=== PATIENT | female | born 1985 | race Caucasian/White ===

== ENCOUNTER 2020-04-29 22:33 | Inpatient (IN) | payer SELFPAY ==
--- NOTE | 2020-04-29 22:37 | ED_ITS ---
Documented by User: RUSSELL Euceda 04/29/20 23:24 HPI - Psych General: Chief Complaint: Psychiatric Symptoms Stated Complaint: SI Time Seen by Provider: 04/29/20 22:36 Source: patient Mode of arrival: ambulatory Limitations: no limitations History of Present Illness: HPI Narrative: Patient was brought in by EMS for concerns of suicidal ideation. Patient was very belligerent and acting out with staff. At one time patient walked out of the building to smoke a cigarette but then came back because she did not have no cigarettes. Patient states that she wants to put a bullet in her head. Dr. Owens evaluated patient patient and will 96 patient to protect herself.. Associated symptoms: Reports suicidal ideation Review of Systems General: Reports: 10 or more systems reviewed and unremarkable except in HPI and below Psych: Reports: suicidal ideation PFS ED PFSH: Social History Smoking and tobacco status: current every day smoker Physical Exam Const: COMMON NORMALS: no acute distress and patient oriented x3 GENERAL APPEARANCE: not cooperative HENMT: COMMON NORMALS: normocephalic and Normal external nose present HEAD & SCALP: normal to inspection and normocephalic NOSE: Normal external nose present MOUTH: Normal oral and palatal mucosa present Eye: GENERAL EYE: appearance normal, both eyes and all related structures Neck/C-Spine: COMMON NORMALS: full ROM Lymph: LYMPHATIC: no lymphadenopathy noted Chest: COMMONS NORMALS: normal inspection of the chest Resp: COMMON NORMALS: normal respiratory effort EFFORT & INSPECTION: Yes able to speak in complete sentences Cardio: COMMON NORMALS: regular rate and regular rhythm RATE: regular rate RHYTHM: regular rhythm GI: COMMON NORMALS: non-tender Back/Pelvis: COMMON NORMALS: thoracic and lumbar spine normal to inspection Extremity: COMMON NORMALS: normal to inspection Neuro: COMMON NORMALS: patient oriented x3 and moves all extremities Psych: ATTITUDE: Yes paranoid, Yes uncooperative and Yes hostile ACTIVITY/MOTOR BEHAVIOR: Yes fidgeting SPEECH: Yes excessive MOOD & AFFECT: Yes elevated mood THOUGHT PROCESS: Circumstantial thought process present THOUGHT CONTENT: Yes Suicidality present INSIGHT: Poor insight present (Psych) JUDGEMENT: Poor judgement present (Psych) Skin: COMMON NORMALS: no rashes or lesions noted GENERAL SKIN EXAM: no rashes or lesions noted MDM - Psych MDM Narrative: Medical decision making narrative: Patient was brought in by EMS in an intoxicated state of unknown substances. Patient was making threats of suicide. In the emergency room patient made a statement that she would put a gun to her head and pulled the trigger. Patient is hyper alert and uncooperative. Dr. Owens evaluated patient and placed her on 96-hour hold for protection of self. Patient was given medication of Haldol and Ativan due to her aggressive and uncooperative state. Patient needs admission to the neuropsychiatric unit for protection of self. Lab Data: Labs: Lab Results 04/29/20 04/29/20 04/29/20 Range/Units 23:28 23:28 23:28 WBC 7.9 (4.0-10.0) 10^3/ uL RBC 4.08 L (4.1-5.3) 10^6/u L Hgb 13.7 (11.5-15.3) g/dL Hct 40.5 (37.0-47.0) % MCV 99.3 H (81-99) fL MCH 33.6 (28.0-34.0) pg MCHC 33.8 (30.0-36.0) g/dL RDW 13.7 (12.1-15.1) % Plt Count 260 (130-400) 10^3/c mm MPV 10.2 (7.4-10.4) fL Neut % (Auto) 50.0 % Lymph % (Auto) 40.9 % Hamlin % (Auto) 7.8 % Eos % (Auto) 0.4 % Baso % (Auto) 0.6 % Neut # (Auto) 3.9 (1.8-7.7) 10^3/u L Lymph # (Auto) 3.2 (0.8-4.8) 10^3/u L Hamlin # (Auto) 0.6 (0.2-0.9) 10^3/u L Eos # (Auto) 0.0 (0.0-0.8) 10^3/u L Baso # (Auto) 0.1 (0.0-0.1) 10^3/u L Nucleated RBC % (a uto) 0 % Nucleated RBCs # 0.0 /100WBC Sodium 139 (136-145) mmol/L Potassium 3.5 (3.5-5.1) mmol/L Chloride 103 (98-107) mmol/L Carbon Dioxide 20 L (22-29) mmol/L Anion Gap 19.5 H (5-19) BUN 5 L (6-20) mg/dL Creatinine 0.6 (0.5-0.9) mg/dL GFR Calculation 115.9 (90-130) mL/min Glucose 106 (65-115) mg/dL Calculated Osmolal ity 284 L (285-295) mOsm/k g Calcium 9.7 (8.5-10.5) mg/dL Total Bilirubin 0.3 (0.15-1.2) mg/dL AST 18 (0-32) U/L ALT 12 (0-33) U/L Alkaline Phosphata se 78 (35-105) IU/L Total Protein 7.9 (6.6-8.7) g/dL Albumin 4.8 (3.5-5.2) g/dL Globulin 3.1 (1.3-4.6) g/dL TSH 0.46 (0.27-4.20) uIU/ mL HCG, Qual Negative (Negative) Urine Color (Yellow) Urine Appearance (CLEAR) Urine pH (5-7) Ur Specific Gravit y (1.005-1.030) Urine Protein (Negative) Urine Glucose (UA) (Normal) Urine Ketones (Negative) Urine Blood (Negative) Urine Nitrate (Negative) Urine Bilirubin (NEGATIVE) Urine Urobilinogen (Negative) mg/dL Ur Leukocyte Fouzia ase (Negative) Urine RBC (0-2) /hpf Urine WBC (0-5) /hpf Ur Squamous Epith Cells (0-5) Urine Bacteria (NONE) Salicylates < 0.3 L (3-10) mg/dL Urine Opiates Scre en (Negative) ng/mL Acetaminophen < 5.0 L (10-30) ug/mL Ur Barbiturates Sc reen (Negative) ng/mL Ur Phencyclidine S crn (Negative) ng/mL Ur Amphetamines Sc reen (Negative) ng/mL U Benzodiazepines Scrn (Negative) ng/mL Urine Cocaine Scre en (Negative) ng/mL U Marijuana (THC) Screen (Negative) ng/mL Ethyl Alcohol 281 H (0-10) mg/dL 04/29/20 04/29/20 Range/Units 23:35 23:35 WBC (4.0-10.0) 10^3/ uL RBC (4.1-5.3) 10^6/u L Hgb (11.5-15.3) g/dL Hct (37.0-47.0) % MCV (81-99) fL MCH (28.0-34.0) pg MCHC (30.0-36.0) g/dL RDW (12.1-15.1) % Plt Count (130-400) 10^3/c mm MPV (7.4-10.4) fL Neut % (Auto) % Lymph % (Auto) % Hamlin % (Auto) % Eos % (Auto) % Baso % (Auto) % Neut # (Auto) (1.8-7.7) 10^3/u L Lymph # (Auto) (0.8-4.8) 10^3/u L Hamlin # (Auto) (0.2-0.9) 10^3/u L Eos # (Auto) (0.0-0.8) 10^3/u L Baso # (Auto) (0.0-0.1) 10^3/u L Nucleated RBC % (a uto) % Nucleated RBCs # /100WBC Sodium (136-145) mmol/L Potassium (3.5-5.1) mmol/L Chloride (98-107) mmol/L Carbon Dioxide (22-29) mmol/L Anion Gap (5-19) BUN (6-20) mg/dL Creatinine (0.5-0.9) mg/dL GFR Calculation (90-130) mL/min Glucose (65-115) mg/dL Calculated Osmolal ity (285-295) mOsm/k g Calcium (8.5-10.5) mg/dL Total Bilirubin (0.15-1.2) mg/dL AST (0-32) U/L ALT (0-33) U/L Alkaline Phosphata se (35-105) IU/L Total Protein (6.6-8.7) g/dL Albumin (3.5-5.2) g/dL Globulin (1.3-4.6) g/dL TSH (0.27-4.20) uIU/ mL HCG, Qual (Negative) Urine Color Straw (Yellow) Urine Appearance Sl hazy (CLEAR) Urine pH 6.5 (5-7) Ur Specific Gravit y 1.005 (1.005-1.030) Urine Protein Neg (Negative) Urine Glucose (UA) Norm (Normal) Urine Ketones Negative (Negative) Urine Blood Neg (Negative) Urine Nitrate Negative (Negative) Urine Bilirubin Neg (NEGATIVE) Urine Urobilinogen Norm (Negative) mg/dL Ur Leukocyte Fouzia ase Negative (Negative) Urine RBC 0-4 H (0-2) /hpf Urine WBC 5-10 H (0-5) /hpf Ur Squamous Epith Cells 15-25 H (0-5) Urine Bacteria Trace (NONE) Salicylates (3-10) mg/dL Urine Opiates Scre en Negative (Negative) ng/mL Acetaminophen (10-30) ug/mL Ur Barbiturates Sc reen Negative (Negative) ng/mL Ur Phencyclidine S crn Negative (Negative) ng/mL Ur Amphetamines Sc reen Negative (Negative) ng/mL U Benzodiazepines Scrn Negative (Negative) ng/mL Urine Cocaine Scre en Negative (Negative) ng/mL U Marijuana (THC) Screen Positive H (Negative) ng/mL Ethyl Alcohol (0-10) mg/dL Discharge Plan Discharge Patient Disposition: Admitted As Inpatient Admit Provider: Carlito Quintero Clinical Impression: Suicidal ideation, Acute psychosis Condition: Stable Interventions: ED Discharge Assessment Last Done: 04/30/20 00:48 ED Charges Last Done: 04/30/20 00:49 Discharge Date/Time: 04/30/20 01:13 Sign Out Sign Out Data: Patient Sign Out occurred on 04/29/20 at 23:27. Patient's care was discussed, and care was transferred from to Ivania James. Coding Level of Care Code ED Research Laboratory Manager for Chg Fwd Exam Comprehensive Documented by User: Ivania James 04/30/20 03:36 HPI - Psych General: Chief Complaint: Psychiatric Symptoms Stated Complaint: SI Time Seen by Provider: 04/29/20 22:36 PFSH ED PFSH: Social History Smoking and tobacco status: current every day smoker MDM - Psych MDM Narrative: Medical decision making narrative: The case was reviewed with Dr. Quintero by me and he agrees admit the patient to the MPU. She has been placed under 96-hour hold secondary to her behavior and wanting to run. Lab Data: Attestation: I reviewed the patient's lab results. Labs: Lab Results 04/29/20 04/29/20 04/29/20 Range/Units 23:28 23:28 23:28 WBC 7.9 (4.0-10.0) 10^3/ uL RBC 4.08 L (4.1-5.3) 10^6/u L Hgb 13.7 (11.5-15.3) g/dL Hct 40.5 (37.0-47.0) % MCV 99.3 H (81-99) fL MCH 33.6 (28.0-34.0) pg MCHC 33.8 (30.0-36.0) g/dL RDW 13.7 (12.1-15.1) % Plt Count 260 (130-400) 10^3/c mm MPV 10.2 (7.4-10.4) fL Neut % (Auto) 50.0 % Lymph % (Auto) 40.9 % Hamlin % (Auto) 7.8 % Eos % (Auto) 0.4 % Baso % (Auto) 0.6 % Neut # (Auto) 3.9 (1.8-7.7) 10^3/u L Lymph # (Auto) 3.2 (0.8-4.8) 10^3/u L Hamlin # (Auto) 0.6 (0.2-0.9) 10^3/u L Eos # (Auto) 0.0 (0.0-0.8) 10^3/u L Baso # (Auto) 0.1 (0.0-0.1) 10^3/u L Nucleated RBC % (a uto) 0 % Nucleated RBCs # 0.0 /100WBC Sodium 139 (136-145) mmol/L Potassium 3.5 (3.5-5.1) mmol/L Chloride 103 (98-107) mmol/L Carbon Dioxide 20 L (22-29) mmol/L Anion Gap 19.5 H (5-19) BUN 5 L (6-20) mg/dL Creatinine 0.6 (0.5-0.9) mg/dL GFR Calculation 115.9 (90-130) mL/min Glucose 106 (65-115) mg/dL Calculated Osmolal ity 284 L (285-295) mOsm/k g Calcium 9.7 (8.5-10.5) mg/dL Total Bilirubin 0.3 (0.15-1.2) mg/dL AST 18 (0-32) U/L ALT 12 (0-33) U/L Alkaline Phosphata se 78 (35-105) IU/L Total Protein 7.9 (6.6-8.7) g/dL Albumin 4.8 (3.5-5.2) g/dL Globulin 3.1 (1.3-4.6) g/dL TSH 0.46 (0.27-4.20) uIU/ mL HCG, Qual Negative (Negative) Urine Color (Yellow) Urine Appearance (CLEAR) Urine pH (5-7) Ur Specific Gravit y (1.005-1.030) Urine Protein (Negative) Urine Glucose (UA) (Normal) Urine Ketones (Negative) Urine Blood (Negative) Urine Nitrate (Negative) Urine Bilirubin (NEGATIVE) Urine Urobilinogen (Negative) mg/dL Ur Leukocyte Fouzia ase (Negative) Urine RBC (0-2) /hpf Urine WBC (0-5) /hpf Ur Squamous Epith Cells (0-5) Urine Bacteria (NONE) Salicylates < 0.3 L (3-10) mg/dL Urine Opiates Scre en (Negative) ng/mL Acetaminophen < 5.0 L (10-30) ug/mL Ur Barbiturates Sc reen (Negative) ng/mL Ur Phencyclidine S crn (Negative) ng/mL Ur Amphetamines Sc reen (Negative) ng/mL U Benzodiazepines Scrn (Negative) ng/mL Urine Cocaine Scre en (Negative) ng/mL U Marijuana (THC) Screen (Negative) ng/mL Ethyl Alcohol 281 H (0-10) mg/dL 04/29/20 04/29/20 Range/Units 23:35 23:35 WBC (4.0-10.0) 10^3/ uL RBC (4.1-5.3) 10^6/u L Hgb (11.5-15.3) g/dL Hct (37.0-47.0) % MCV (81-99) fL MCH (28.0-34.0) pg MCHC (30.0-36.0) g/dL RDW (12.1-15.1) % Plt Count (130-400) 10^3/c mm MPV (7.4-10.4) fL Neut % (Auto) % Lymph % (Auto) % Hamlin % (Auto) % Eos % (Auto) % Baso % (Auto) % Neut # (Auto) (1.8-7.7) 10^3/u L Lymph # (Auto) (0.8-4.8) 10^3/u L Hamlin # (Auto) (0.2-0.9) 10^3/u L Eos # (Auto) (0.0-0.8) 10^3/u L Baso # (Auto) (0.0-0.1) 10^3/u L Nucleated RBC % (a uto) % Nucleated RBCs # /100WBC Sodium (136-145) mmol/L Potassium (3.5-5.1) mmol/L Chloride (98-107) mmol/L Carbon Dioxide (22-29) mmol/L Anion Gap (5-19) BUN (6-20) mg/dL Creatinine (0.5-0.9) mg/dL GFR Calculation (90-130) mL/min Glucose (65-115) mg/dL Calculated Osmolal ity (285-295) mOsm/k g Calcium (8.5-10.5) mg/dL Total Bilirubin (0.15-1.2) mg/dL AST (0-32) U/L ALT (0-33) U/L Alkaline Phosphata se (35-105) IU/L Total Protein (6.6-8.7) g/dL Albumin (3.5-5.2) g/dL Globulin (1.3-4.6) g/dL TSH (0.27-4.20) uIU/ mL HCG, Qual (Negative) Urine Color Straw (Yellow) Urine Appearance Sl hazy (CLEAR) Urine pH 6.5 (5-7) Ur Specific Gravit y 1.005 (1.005-1.030) Urine Protein Neg (Negative) Urine Glucose (UA) Norm (Normal) Urine Ketones Negative (Negative) Urine Blood Neg (Negative) Urine Nitrate Negative (Negative) Urine Bilirubin Neg (NEGATIVE) Urine Urobilinogen Norm (Negative) mg/dL Ur Leukocyte Fouzia ase Negative (Negative) Urine RBC 0-4 H (0-2) /hpf Urine WBC 5-10 H (0-5) /hpf Ur Squamous Epith Cells 15-25 H (0-5) Urine Bacteria Trace (NONE) Salicylates (3-10) mg/dL Urine Opiates Scre en Negative (Negative) ng/mL Acetaminophen (10-30) ug/mL Ur Barbiturates Sc reen Negative (Negative) ng/mL Ur Phencyclidine S crn Negative (Negative) ng/mL Ur Amphetamines Sc reen Negative (Negative) ng/mL U Benzodiazepines Scrn Negative (Negative) ng/mL Urine Cocaine Scre en Negative (Negative) ng/mL U Marijuana (THC) Screen Positive H (Negative) ng/mL Ethyl Alcohol (0-10) mg/dL Discharge Plan Discharge Patient Disposition: Admitted As Inpatient Admit Provider: Carlito Quintero Clinical Impression: Suicidal ideation, Acute psychosis Condition: Stable Interventions: ED Discharge Assessment Last Done: 04/30/20 00:48 ED Charges Last Done: 04/30/20 00:49 Discharge Date/Time: 04/30/20 01:13 Sign Out Sign Out Data: Patient Sign Out occurred on 04/29/20 at 23:27. Patient's care was discussed, and care was transferred from to Ivania James. Coding Level of Care Code ED Research Laboratory Manager for Smitha Fwdane Exam Comprehensive
[2020-04-29 22:44] VITALS: BP 162/97; PULSE 150; RESP 22; TEMP 36.7; O2SAT 97; BMI 21.9
[2020-04-29] MEDS: nicotine 21 mg Patch 1 PATCH TRANSDERMA (22:59)
[2020-04-29 23:34] LABS: Basophils # 0.1 10^3/uL (0.0-0.1); Basophils % 0.6 %; Eosinophils % 0.4 %; Hematocrit 40.5 % (37.0-47.0); Hemoglobin 13.7 g/dL (11.5-15.3); Lymphocytes # 3.2 10^3/uL (0.8-4.8); Lymphocytes % 40.9 %; Mean Corpuscular HGB Conc 33.8 g/dL (30.0-36.0); Mean Corpuscular Hemoglobin 33.6 pg (28.0-34.0); Mean Corpuscular Volume 99.3 fL (81-99); Mean Platelet Volume 10.2 fL (7.4-10.4); Monocytes # 0.6 10^3/uL (0.2-0.9); Monocytes % 7.8 %; Neutrophils # 3.9 10^3/uL (1.8-7.7); Nucleated Red Blood Cells % 0 %; Platelet Count 260 10^3/cmm (130-400); Red Blood Count 4.08 10^6/uL (4.1-5.3); Red Cell Distribution Width 13.7 % (12.1-15.1); White Blood Count 7.9 10^3/uL (4.0-10.0)
[2020-04-29 23:51] LABS: HCG, Serum Qual Negative (Negative)
[2020-04-29 23:58] LABS: Alanine Aminotransferase 12 U/L (0-33); Albumin Level 4.8 g/dL (3.5-5.2); Alcohol Level 281 mg/dL (0-10); Alkaline Phosphatase 78 IU/L (35-105); Anion Gap 19.5 (5-19); Aspartate Amino Transferase 18 U/L (0-32); Blood Urea Nitrogen 5 mg/dL (6-20); Calcium 9.7 mg/dL (8.5-10.5); Carbon Dioxide 20 mmol/L (22-29); Chloride 103 mmol/L (98-107); Globulin 3.1 g/dL (1.3-4.6); Glomerular Filtration Rate 115.9 mL/min (90-130); Glucose 106 mg/dL (65-115); Osmolality Calculated 284 mOsm/kg (285-295); Potassium 3.5 mmol/L (3.5-5.1); Sodium 139 mmol/L (136-145); Thyroid Stimulating Hormone 0.46 uIU/mL (0.27-4.20); Total Bilirubin 0.3 mg/dL (0.15-1.2); Total Protein 7.9 g/dL (6.6-8.7)
[2020-04-30 00:03] LABS: Acetaminophen < 5.0 ug/mL (10-30); Salicylate < 0.3 mg/dL (3-10)
[2020-04-30 01:00] LABS: Amphetamines Screen Urine Negative (Negative); Barbiturates Screen Urine Negative (Negative); Benzodiazepines Screen Urine Negative (Negative); Cocaine Screen Urine Negative (Negative); Opiate Screen Urine Negative (Negative); PCP Screen Urine Negative (Negative); THC Screen Urine Positive (Negative)
[2020-04-30 01:08] VITALS: BP 108/65; PULSE 98; RESP 22; TEMP 36.8; O2SAT 96
[2020-04-30 01:17] VITALS: BP 108/65; PULSE 98; RESP 22; TEMP 36.8; O2SAT 96
[2020-04-30 01:19] LABS: Add Urine Microscopic? YES; Bilirubin Urine Neg (NEGATIVE); Blood Urine Neg (Negative); Glucose Urine UA Norm (Normal); Ketones Urine Negative (Negative); Leukocyte Esterase Urine Negative (Negative); Nitrate Urine Negative (Negative); Protein Urine Neg (Negative); Specific Gravity, Urine 1.005 (1.005-1.030); Urine Appearance SL Hazy (CLEAR); Urine Color Straw (Yellow); Urobilinogen Urine Norm (Negative); pH Urine 6.5 (5-7)
[2020-04-30 01:21] LABS: Add Urine Culture? No; Bacteria Urine TRACE; RBC Urine 0-4 /hpf (0-2); Squamous Epithelial Cell Urine 15-25 (0-5)
[2020-04-30 06:00] VITALS: BP 103/61; PULSE 87; RESP 20; TEMP 37.1; O2SAT 97
[2020-04-30] MEDS: folic acid 1 mg Tablet PO (08:06)
[2020-04-30] MEDS: thiamine 100 mg Tablet PO (08:07)
[2020-04-30] MEDS: multivitamin therapeutic Tablet 1 TAB PO (08:07)
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
[2020-04-30 14:00] VITALS: BP 129/77; PULSE 79; RESP 19; TEMP 36.8
[2020-04-30] MEDS: fluoxetine 20 mg Capsule PO (14:43)
[2020-04-30 22:00] VITALS: BP 148/78; PULSE 75; RESP 17; TEMP 37; O2SAT 99
[2020-04-30] MEDS: trazodone 50 mg Tablet PO (22:17)
[2020-05-01 06:00] VITALS: BP 135/90; PULSE 61; RESP 17; TEMP 36.6; O2SAT 99
[2020-05-01] MEDS: thiamine 100 mg Tablet PO (09:05)
[2020-05-01] MEDS: fluoxetine 20 mg Capsule PO (09:05)
[2020-05-01] MEDS: folic acid 1 mg Tablet PO (09:05)
[2020-05-01] MEDS: multivitamin therapeutic Tablet 1 TAB PO (09:05)
[2020-05-01] MEDS: nicotine 21 mg Patch 1 PATCH TRANSDERMA (09:20)
[2020-05-01] MEDS: acetaminophen 325 mg Tablet 650 MG PO (13:38)
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
[2020-05-01 16:41] VITALS: BP 135/90; PULSE 61; RESP 17; TEMP 36.6; O2SAT 99
--- NOTE | 2020-05-03 13:18 | PC.RESP ---
SMOKING CESSATION INFORMATION SENT TO PATIENT.
== END 2020-05-01 17:35 | disposition home or self-care (01) | DRG 881 ==
LOC: ER 23:27 → NP 04-30 00:45
PROVIDERS: Nurse Practitioner Family; Admitting Provider Psychiatry & Neurology Psychiatry; Emergency Provider Emergency Medicine; Visit Provider Psychiatry & Neurology Psychiatry
DX: F32.9 Major depressive disorder, single episode, unspecified (principal); F10.129 Alcohol abuse with intoxication, unspecified; F17.210 Nicotine dependence, cigarettes, uncomplicated; F15.90 Other stimulant use, unspecified, uncomplicated
CPT/HCPCS: 12345; 80053; 80306; 80307; 81001; 84443; 84703; 85025; 99284

== ENCOUNTER 2021-04-02 13:00 | Outpatient (CLI) | payer MEDICAID, SELFPAY ==
[2021-04-02 13:20] VITALS: BP 142/89; PULSE 81
[2021-04-02 13:31] VITALS: RESP 18
--- NOTE | 2021-04-02 13:31 | USR_ITS ---
PROCEDURE INFORMATION: Exam: US , Limited Exam date and time: 04/02/2021 1:42 PM Age: 35 years old Clinical indication: Lmp or gestational age (in weeks): 20 weeks 5 days (todays US 21 weeks 0 days); Other: Bleeding; ; Additional info: Bleeding. Check dates. Placental location. April TECHNIQUE: Imaging protocol: Real-time ultrasound of the maternal uterus with image documentation. Exam focused on the clinical indication. COMPARISON: US OB >14 Weeks [id number] 08/26/2017 11:01 AM FINDINGS: Gestation: There is a single intrauterine gestation. Normal movement is seen. position: Fetus is in cephalic position. heart rate: heart rate is 157 bpm. Placenta: Placenta is anterior and fundal without evidence of previa. BIOMETRY: Estimated weight: weight is 0 lb and 13 oz. Biparietal diameter: BPD is 5.1 cm with an EGA of 21 weeks and 3 days. Head circumference: Head circumference is 19.1 cm with an EGA of 21 weeks and 2 days. Abdominal circumference: Abdominal circumference is 15.5 cm with an EGA of 20 weeks and 5 days. Femur length: Femur length is 3.4 cm with an EGA of 20 weeks and 4 days. MATERNAL: Cervix: Normal cervical length of 3.1 cm. Left adnexa: Left ovary measures 4.4 x 2.8 x 2.7 cm with a volume of 17.1 cc. There is a 2.5 x 1.8 x 2.1 cm simple cyst in the left ovary. US/US OB limited [id number] IMPRESSION: Single live intrauterine fetus. EGA based on ultrasound is 21 weeks and 0 days.
[2021-04-02 13:43] VITALS: BMI 23.6
[2021-04-02 13:50] VITALS: BP 138/66; PULSE 78
[2021-04-02 13:58] LABS: Specific Gravity, Urine 1.005 (1.005-1.030); Urine Appearance Clear (CLEAR); Urine Color Yellow (Yellow); pH Urine 7 (5-7)
[2021-04-02 13:59] LABS: Add Urine Culture? No; Bacteria Urine 1+ /hpf; Bilirubin Urine Neg (Negative); Blood Urine Neg (Negative); Glucose Urine UA Norm (Normal); Ketones Urine Negative (Negative); Leukocyte Esterase Urine 1+ (Negative); Mucus Urine TRACE /hpf; Nitrate Urine Negative (Negative); Protein Urine Neg (Negative); Trichomonas Urine 1+ /hpf; Urobilinogen Urine 1 mg/dL (Negative)
--- NOTE | 2021-04-02 14:01 | PC.NURSE ---
pt here with c/o spotting and cramping throughout the day yesterday, has resolved today but would like to get checked out. No active bleeding seen. FHTs [address] Ko notified. Orders for ultrasound and UA received. Orders to watch for bleeding for 2 hours.
[2021-04-02 14:05] VITALS: BP 122/59; PULSE 70
[2021-04-02 14:05] LABS: Amphetamines Screen Urine Negative (Negative); Barbiturates Screen Urine Negative (Negative); Benzodiazepines Screen Urine Negative (Negative); Cocaine Screen Urine Negative (Negative); Opiate Screen Urine Negative (Negative); PCP Screen Urine Negative (Negative); THC Screen Urine Positive (Negative)
[2021-04-02 14:20] VITALS: BP 126/58; PULSE 69
[2021-04-02] MEDS: metroNIDAZOLE 500 MG Tablet PO (15:26)
--- NOTE | 2021-04-03 17:07 | PC.NURSE ---
Attempted to contact patient to educate her on making sure she follows up with her primary doctor by the phone number she gave when she was triaged. No answer.
== END 2021-04-02 15:30 | disposition home or self-care (01) ==
LOC: OPOB 13:06 → OBGYN 13:09
PROVIDERS: Visit Provider Obstetrics & Gynecology
DX: O46.90 Antepartum hemorrhage, unspecified, unspecified trimester (principal); Z3A.00 Weeks of gestation of pregnancy not specified
CPT/HCPCS: 76815; 80306; 81001; 87491; 87591; 99211

== ENCOUNTER → 2021-05-08 10:55 | Outpatient (BNVA) | payer MEDICAID, SELFPAY | PROVIDERS: Visit Provider Obstetrics & Gynecology | DX: Z34.82 Encounter for supervision of other normal pregnancy, second trimester (principal) | CPT/HCPCS: 80307; 84315; 87086; 87491; 87591; 87661; 88175 ==

== ENCOUNTER → 2021-05-17 15:07 | Outpatient (BNVA) | payer MEDICAID, SELFPAY | PROVIDERS: Visit Provider Obstetrics & Gynecology | DX: Z36.87 Encounter for antenatal screening for uncertain dates (principal) | CPT/HCPCS: 76805; 82950; 85027 ==

== ENCOUNTER → 2021-05-29 08:10 | Outpatient (BNVA) | payer MEDICAID, SELFPAY | PROVIDERS: Visit Provider Obstetrics & Gynecology | DX: O09.512 Supervision of elderly primigravida, second trimester (principal); O99.810 Abnormal glucose complicating pregnancy; Z3A.00 Weeks of gestation of pregnancy not specified | CPT/HCPCS: 82951; 82952; 85025 ==

== ENCOUNTER → 2021-07-21 15:21 | Outpatient (BNVA) | payer MEDICAID, SELFPAY | PROVIDERS: Visit Provider Obstetrics & Gynecology | DX: O09.512 Supervision of elderly primigravida, second trimester (principal); Z3A.00 Weeks of gestation of pregnancy not specified | CPT/HCPCS: 84315; 87081 ==

== ENCOUNTER 2021-08-03 13:39 | Inpatient (IN) | payer MEDICAID, SELFPAY ==
[2021-08-03] VITALS (52 sets, daily range): BP systolic 110–181; BP diastolic 56–88; PULSE 39–93; RESP 16–18; TEMP 35.3–37.3; O2SAT 100; BMI 24.9
[2021-08-03] MEDS: lactated ringers 1,000 ML 999 ML IV ×2 (13:55→14:52)
[2021-08-03] MEDS: ondansetron 2 mg/ML SDV 2 mL 4 MG IVP (14:00)
[2021-08-03 14:22] LABS: Basophils # 0.1 10^3/uL (0.0-0.1); Basophils % 0.3 %; Eosinophils # 0.1 10^3/uL (0.0-0.8); Eosinophils % 0.6 %; Hematocrit 39.4 % (37.0-47.0); Hemoglobin 13.1 g/dL (11.5-15.3); Lymphocytes % 13.4 %; Mean Corpuscular HGB Conc 33.2 g/dL (30.0-36.0); Mean Corpuscular Volume 93.1 fl (81-99); Mean Platelet Volume 12.2 fL (7.4-10.4); Monocytes % 6.7 %; Neutrophils # 11.62 10^3/uL (1.8-7.7); Neutrophils % 78.5 %; Nucleated Red Blood Cells % 0 %; Platelet Count 235 10^3/cmm (130-400); Red Blood Count 4.23 10^6/uL (4.1-5.3); White Blood Count 14.8 10^3/uL (4.0-10.0)
[2021-08-03] MEDS: metoclopramide 5 mg/mL SDV 2 mL 10 MG IV (14:39)
--- NOTE | 2021-08-03 14:51 | ANES.PREANE2 ---
Pre-Anesthetic Assessment Pre-Anesthetic Assessment: Height/Weight: Height 1.63 m Weight 65.771 kg Temp Pulse BP 95.5 F L 41 L 181/83 08/03/21 14:44 08/03/21 14:40 08/03/21 14:40 Preop Diagnosis: labor pains Proposed Procedure: epidural Was Beta Kayla taken within 24 hours: N/A Was Clonidine taken within 24 hours: N/A Social: Social History: Alcohol and Tobacco Exam: Pre-Anes Outpt Exam: alert, oriented x 3, clear to auscultation bilaterally and regular rate & rhythm Airway: Submandibular: WNL Cervical ROM: WNL MP: 2 Dentition: Full Additional comments: missing teeth Pulmonary: Pulmonary: None reported CV/HEM: CV/HEM: Anemia : : None reported Hepatic: Hepatic: None reported GI: GI: None reported Metabolic: Metabolic: None reported Musc/skel: Musc/skel: None reported Neuropsych: Neuropsych: None reported Anesthetic Plan: ASA status: 2 Anesthesia: Regional (specify below) Risk of > 500 ml blood loss (7ml/kg in children): No Meds/Allergies Current Medications: Current Medications Generic Name Dose Route Start Last Admin Trade Name Freq PRN Reason Stop Dose Admin Lactated Ringer's 1,000 mls @ 999 m ls/hr 08/03/21 13:40 08/03/21 13:55 Lactated Ringers IV 999 mls/hr .Q1H1M PRN Administration See label comment s Ondansetron HCl 4 mg 08/03/21 13:38 08/03/21 14:00 Ondansetron 2 Mg /Ml Sdv 2 Ml IVP 4 mg Q4H PRN Administration NAUSEA AND VOMITI NG PFSH Anesthesia PFSH: Surgical History Previous section Family History Family/Other Diabetes maternal and paternal cousins Denies family history of Colon cancer Ovarian cancer Clotting disorder Heart disease Hyperlipidemia Breast cancer Anesthesia complication Bleeding disorder Hypertension Uterine cancer Thyroid condition Stroke Social History (Updated 07/28/21 @ 13:39 by Betty Kaye LPN) Smoking and tobacco status: current every day smoker cigarettes Packs smoked per day: 0.75 Alcohol intake: former Former alcohol use details: prior to Data Anesthesia CBC & Chem 7: 08/03/21 13:50 Other Labs: Laboratory Results - last 48 hr 08/03/21 13:50 WBC 14.8 H RBC 4.23 Hgb 13.1 Hct 39.4 MCV 93.1 MCH 31.0 MCHC 33.2 RDW 13.0 Plt Count 235 MPV 12.2 H Neut % (Auto) 78.5 Lymph % (Auto) 13.4 [place] % (Auto) 6.7 Eos % (Auto) 0.6 Baso % (Auto) 0.3 Neut # (Auto) 11.62 H Lymph # (Auto) 2.0 [place] # (Auto) 1.0 H Eos # (Auto) 0.1 Baso # (Auto) 0.1 Nucleated RBC % (auto) 0 Nucleated RBCs # 0.0 Cardiac Studies: No Data to Display
--- NOTE | 2021-08-03 15:19 | ANES.PROC ---
Anesthesia Procedures Procedure/Date: 08/03/21 epidural Procedure Narrative: epidural complete, bolus given, epidural pump initiated with TRUCK DOCK MATERIAL MOVER education given, vitals taken during procedure using OBIX system and satisfactory throughout, patient admits to decrease pain, report of procedure to OB RN Epidural: Time Out Performed: Yes Consents Signed: Procedure Consent Consent: requested by attending/covering physician, from patient, risks and benefits reviewed and patient agrees to proceed Lumbar Level: L3-L4 Epidural position: sitting Epidural procedure: sterile prep of area, 1% lidocaine to numb the area (3 mL), 18 g needle, negative for paresthesia passed, neg for paresthesia, test dose given, 1.5% xylocaine 1:200k epi (5 mL), 0.2% Ropivacaine bolus ml (5 mL), placed PCEA, no systemic response, sterile dressing applied, L.U.D. no apparent complications and 0.2% Ropiavacaine @ mls/hr (13 mL/hr)
[2021-08-03 15:34] LABS: Amphetamines Screen Urine Negative (Negative); Barbiturates Screen Urine Negative (Negative); Benzodiazepines Screen Urine Negative (Negative); Cocaine Screen Urine Negative (Negative); Opiate Screen Urine Negative (Negative); PCP Screen Urine Negative (Negative); THC Screen Urine Positive (Negative)
[2021-08-03] MEDS: dextrose 5%-lactated ringers 1,000 ML 125 ML IV (16:19)
[2021-08-03 17:10] LABS: Urine Creatinine 159 mg/dL (28-217)
[2021-08-03 17:12] LABS: UPRO/UCREAT Ratio 0.13 mg/mg CR; Urine Protein Random 21 mg/dL
--- NOTE | 2021-08-03 17:18 | ANES.PROC ---
Anesthesia Procedures Procedure/Date: 08/03/21 Procedure Narrative: Patient epidural assessed after patient complains of right sided pain with contractions. Patient was placed on her right side. 100mcg of fentanyl given and a SKI INSTRUCTOR bolus was initiated.
[2021-08-03 17:32] LABS: Alanine Aminotransferase 9 U/L (0-33); Albumin Level 3.7 g/dL (3.5-5.2); Alkaline Phosphatase 255 IU/L (35-105); Anion Gap 21.5 (5-19); Aspartate Amino Transferase 10 U/L (0-32); Blood Urea Nitrogen 8 mg/dL (6-20); Calcium 9.3 mg/dL (8.5-10.5); Carbon Dioxide 18 mmol/L (22-29); Chloride 99 mmol/L (98-107); Globulin 4.3 g/dL (1.3-4.6); Glomerular Filtration Rate 141.2 mL/min (90-130); Glucose 73 mg/dL (65-115); Osmolality Calculated 277 mOsm/kg (285-295); Potassium 3.5 mmol/L (3.5-5.1); Sodium 135 mmol/L (136-145); Total Bilirubin 0.2 mg/dL (0.15-1.2); Uric Acid 4.3 mg/dL (2.4-5.7)
[2021-08-03] MEDS: oxytocin 30 UNIT/500 ML BAG 500 UNIT IV (18:00)
--- NOTE | 2021-08-03 18:12 | PM.OPHPUD ---
Labor & Delivery H&P Update Date of Procedure: August 03, 2021 Date H&P Performed: 07/28/21 H&P update information: I have reviewed H&P completed within last 30 days, I have examined patient prior to procedure, No changes to prior documentation and [place] [facility] [place] indicated Changes to previous documentation: Patient in labor 5 cm on admission Admission Diagnosis: Preop diagnosis: labor pains
--- NOTE | 2021-08-03 18:15 | P.PCNOB_ITS ---
Delivery Note: Date of delivery: August 03, 2021 - PRE-DELIVERY DIAGNOSIS: 36 yr old G [id number] at 38w1d Active labor Previous delivery x1 desiring trial of labor. IUGR versus small for gestational age Alcohol use Tobacco use Multiparity desiring permanent sterilization POST-DELIVERY DIAGNOSIS: Vaginal after on 08/03/2021 PROCEDURE: Vaginal after on 08/03/2021 ANESTHESIA: Epidural anesthesia DELIVERING PHYSICIAN: Fadia Hunt FACOG PRE-DELIVERY COURSE: Ms. Guaman is a 36-year-old 3 para 2-0-0-2 at 38 weeks and 1 day who presented to labor and delivery on 08/03/2021 with reports of contractions. On initial exam she was noted to be 5 cm 75% and -2 station with contractions every 3 to 5 minutes and a category 1 tracing. She was admitted in labor and an epidural was placed as she was uncomfortable. After the epidural she was 7 cm. At 4:30 PM artificial rupture of membranes was performed and she was noted to be 8 cm 90% and -2 station. Meconium amniotic fluid was noted. Office System Analyst was notified and asked to be there at time of delivery. She made rapid cervical change and was fully dilated at 5:27 PM feeling the urge to push. tracing was category 1 thus far. DELIVERY NOTE: She was set up in lithotomy position and was pushing effectively. She was noted to be +3 station and continued pushing well. The head delivered in NICHOLAS position, no nuchal cord present. The shoulders and rest of the body followed with her next push. Cord was clamped and cut and the baby handed to the waiting wood miller Dr. Villalpando .The placenta delivered spontaneously intact with membranes and was sent to pathology. The fundus was noted to be firm and well contracted. Manual exploration of the uterine cavity showed the cavity was intact with no defect at site of previous scar. The vagina and cervix were inspected and no cervical or sulcal lacerations were noted. The perineum was intact. Baby girl, Araceli born at 5:54 PM on 08/03/2021 with 8/9, weighing 4 pounds 7 ounces 2010 g, 17-1/2 inches long. Placenta was delivered spontaneously intact with membranes at 5:59 PM.. Cotyledons were intact , centrally inserted umbilical cord with 3 vessels noted. Estimated blood loss 200 mL. Complications-none, both baby and mother were left to recover in a stable condition. Mother decided she would like to have interval sterilization done when she will be scheduled for surgery on an interval basis. This documentation was created by [employer] administrative library assistant software (known for inherent administrative library assistant error). Every effort was made to assure accuracy of administrative library assistant. Any obvious errors or omissions should be clarified with the author of the document. Coding Level of Care Code Acute Mount Loader for Smitha Vázquez
[2021-08-03] MEDS: nicotine 21 mg Patch 1 PATCH TRANSDERMA (20:59)
[2021-08-04] VITALS (16 sets, daily range): BP systolic 97–174; BP diastolic 56–91; PULSE 43–75; RESP 16; TEMP 36.2–36.8
[2021-08-04] MEDS: lanolin oint 7 gm 1 APPLIC TOPICAL (01:54)
[2021-08-04] MEDS: benzocaine-menthol 78 gm Canister 1 SPRAY TOPICAL (01:54)
[2021-08-04] MEDS: acetaminophen 325 mg Tablet 650 MG PO (02:08)
[2021-08-04] MEDS: ondansetron 2 mg/ML SDV 2 mL 4 MG IVP ×3 (02:23→11:36)
[2021-08-04] MEDS: ibuprofen 800 mg tablet PO (04:45)
--- NOTE | 2021-08-04 07:03 | PM.PN ---
Subjective Subjective: Interval history: SUBJECTIVE: Ms. Guaman is doing well today. She states that she is just really nauseous but this is nothing unusual for her which is why she states she uses marijuana every day. She is doing well with the nicotine patch. She denies heavy vaginal bleeding, fever, chills, shortness of breath and chest pain. She has been tolerating regular diet and denies fever. She is bonding well with the baby and breast-feeding. She would like to stay until tomorrow as the baby is not going to be discharged until tomorrow or the day after given baby's small size. OBJECTIVE/PHYSICAL EXAM: Gen.: No acute distress Heart: S1-S2 heard, regular rate and rhythm Lungs: Clear to auscultation bilaterally Abdomen: Soft, fundus firm below umbilicus, Legs: No calf tenderness, no pedal edema. ASSESSMENT AND PLAN: 36-year-old 3 para 3-0-0-3 status post on 08/03/2021, day #1 -Doing well-continue routine care -P.o. pain medication as needed -IV can come out after 24 hours -P.o. and IV nausea medicine--patient educated that some of the nausea may likely be because of the fact that she is not taking her daily marijuana. She understands this. -Anticipate discharge home tomorrow if she continues to do well. -Had a few elevated blood pressures overnight when she was very nauseous and throwing up but otherwise normotensive and she denies any preeclamptic symptoms. Vitals/I&O/Wt Last Vital Signs Temp 97.3 F L 08/04/21 03:13 Pulse 62 08/04/21 03:33 Resp 16 08/03/21 16:32 BP 140/91 08/04/21 03:33 Pulse Ox 100 08/03/21 15:27 08/03/21 08/04/21 08/04/21 22:59 06:59 14:59 Intake Total 772.917 / 1721.967 Output Total 1000 / 1000 900 / 1900 Balance -227.083 / 721.967 -900 / -178.033 Weight last 48 hrs Weight 145 lb Physical Exam Urinary Catheter Management^: Cadena Latex: Cath Placed During This Visit: yes, but has since been removed by the nurse Reason for Continuing Indwelling Catheter: Decision to DC Catheter Urinary Catheter Date of Insertion: 08/03/21 Urinary Catheter Time of Insertion: 15:45 Date Urinary Catheter Removed: 08/03/21 Time Urinary Catheter Discontinued: 17:40 Data : 08/03/21 13:50 08/03/21 13:50 Attestations Medical Necessity Statement*: Patient needs to stay for 1 or 2 more midnights recover from delivery Coding Level of Care Code Acute Box Hinge And Lock Attacher for Smitha Vázquez
[2021-08-04 07:46] LABS: Hematocrit 34.3 % (37.0-47.0); Hemoglobin 11.4 g/dL (11.5-15.3); Mean Corpuscular HGB Conc 33.2 g/dL (30.0-36.0); Mean Corpuscular Hemoglobin 31.6 pg (28.0-34.0); Mean Platelet Volume 12.2 fL (7.4-10.4); Platelet Count 215 10^3/cmm (130-400); Red Blood Count 3.61 10^6/uL (4.1-5.3); Red Cell Distribution Width 12.9 % (12.1-15.1); White Blood Count 15.4 10^3/uL (4.0-10.0)
--- NOTE | 2021-08-04 08:10 | ANE.PACU2 ---
Inpatient post-anesthesia follow up: Airway intact: Yes Vital signs: Temperature 97.3 F Pulse Rate 62 Respiratory Rate 16 Blood Pressure 140/91 Pulse Oximetry 100 Oxygen Delivery Me thod Room Air Oxygen Flow Rate Fraction of Inspir ed Oxygen Hydration adequate: Yes Nausea and vomiting: No Pain level: 2 Mental status: Baseline
[2021-08-04] MEDS: docusate sodium 100 mg Capsule PO ×2 (09:53→21:02)
[2021-08-04] MEDS: prenatal vitamin Capsule 1 CAP PO (09:53)
--- NOTE | 2021-08-04 10:41 | PC.NURSE ---
DSS worker assessed mom and , verbally notified this nurse that may discharge home with mother. DSS will do a home walk through next week.
[2021-08-04] MEDS: metoclopramide 5 mg/mL SDV 2 mL IVP (12:56)
[2021-08-04] MEDS: metoclopramide 10 mg Tablet PO ×2 (13:39→21:02)
[2021-08-04] MEDS: promethazine 25 mg Supp PR ×2 (13:40→19:46)
--- NOTE | 2021-08-04 16:55 | PM.PN ---
Subjective Subjective: Interval history: Was informed by RN and then by her telephone order supervisor Eliz that patient's sister was very agitated and upset about care of patient. I went in to talk to patient Ms. Guaman and her sister was there. Per information provided to me by the nurse and her telephone order supervisor patient had been in pain and patient sister was concerned that there was a UTI and patient sister was concerned that I had not gone in to evaluate the patient. When I went in and reminded patient that I saw her at 6:15 AM and at that time patient had no pain no nausea. Patient admits that with time of evaluation she was doing well and her nausea got worse. This information has been relayed to me and patient is already on a schedule of per rectum Phenergan and p.o. Reglan with Zofran for breakthrough nausea. Reminded patient that she has had this nausea for at least 2 or 3 months prior to today's admission and reminded patient that she has been using marijuana multiple times a day for control of this nausea per patient's own history. I had discussed the differential diagnosis of nausea which could be related to the lack of marijuana/withdrawal or it could be a chronic underlying condition or it could be . Discussed with her that if it is it may take 6 to 12 weeks for changes to completely heal the body and we may not see instant resolution of the symptoms. Discussed that the only concern at this time is that she has a slightly higher blood pressure and there is no concern for preeclampsia given blood work is normal. Patient denies any other preeclamptic symptoms. Her only symptom is nausea. She does admit that the medication regimen has been helping But not completely at this time. Again reviewed with patient that it may take some time to get controlled usually 24 hours to see an improvement. Patient sister then states that she and her grandmother have a history of having urinary tract infections and the only symptom that the experiences nausea and they insist that urine analysis is done. I discussed that doing a urinalysis to rule out a urinary tract infection would not take much time however a urinary tract infection without any symptoms of dysuria abdominal pain and the only symptom of nausea was less likely which was why it was not on top of my differential diagnosis however now in light of this family history of only nausea being a symptom of urinary tract infection I am willing to do a urine analysis and urine culture. Discussed that since she is I would recommend a catheter sample so as to not have the sample contaminated with the lochia. Patient is agreeable to that she is just use the restroom so we will plan on doing a straight cath sample for urine in about 30 minutes and will send this for urine analysis and culture. I discussed with the patient that we will have an idea of what is happening based on the urinalysis however the culture will take 3 to 5 days to come back. Reviewed the reasoning behind this. Discussed that I am more concerned about patient's blood pressure and I would recommend starting blood pressure medication. Given her nausea as well we will call a medicine consult and consult was called to Dr. Babb to rule out any other nonobstetrical causes for the symptoms. This was discussed with patient and her sister and they are agreeable. Vitals/I&O/Wt Last Vital Signs Temp 97.3 F L 08/04/21 03:13 Pulse 54 L 08/04/21 15:32 Resp 16 08/03/21 16:32 BP 146/69 08/04/21 15:32 Pulse Ox 100 08/03/21 15:27 08/04/21 08/04/21 08/04/21 06:59 14:59 22:59 Output Total 900 / 1900 200 / 200 Balance -900 / -178.033 -200 / -200 Weight last 48 hrs Weight 145 lb Physical Exam Urinary Catheter Management^: Cadena Latex: Cath Placed During This Visit: yes, but has since been removed by the nurse Reason for Continuing Indwelling Catheter: Decision to DC Catheter Urinary Catheter Date of Insertion: 08/03/21 Urinary Catheter Time of Insertion: 15:45 Date Urinary Catheter Removed: 08/03/21 Time Urinary Catheter Discontinued: 17:40 Data : 08/04/21 06:20 08/03/21 13:50 Attestations Medical Necessity Statement*: Patient needs to stay to recover from delivery and other problems Coding Level of Care Code Acute Field Hockey Coach for Smitha Vázquez
[2021-08-04] MEDS: dextrose 5%-lactated ringers 1,000 ML 999 ML IV (17:25)
[2021-08-04 19:12] LABS: Bilirubin Urine Neg (Negative); Glucose Urine UA Norm (Normal); Ketones Urine Negative (Negative); Nitrate Urine Negative (Negative); Protein Urine Neg (Negative); Specific Gravity, Urine 1.015 (1.005-1.030); Urine Appearance Clear (CLEAR); Urine Color Yellow (Yellow); pH Urine 6.5 (5-7)
[2021-08-04 19:13] LABS: Add Urine Culture? No; Bacteria Urine TRACE /hpf; Blood Urine 2+ (Negative); Leukocyte Esterase Urine Negative (Negative); Mucus Urine TRACE /hpf; Squamous Epithelial Cell Urine 0-4 /hpf (0-5); Urobilinogen Urine Norm (Negative); WBC Urine 0-4 /hpf (0-5)
--- NOTE | 2021-08-04 19:28 | CTR_ITS ---
PROCEDURE INFORMATION: Exam: CT Head Without Contrast Exam date and time: 08/04/2021 7:28 PM Age: 36 years old Clinical indication: Condition or disease; Other: HTN; Additional info: Nausea, vomiting, bradycardia, hypertension, TECHNIQUE: Imaging protocol: Computed tomography of the head without contrast. Total images: 190 Radiation optimization: All CT scans at this facility use at least one of these dose optimization techniques: automated exposure control; mA and/or kV adjustment per patient size (includes targeted exams where dose is matched to clinical indication); or iterative reconstruction. COMPARISON: CT facial bones wo con* [id number] 08/16/2015 9:10 PM RADIATION DOSE METRICS: Total DLP (mGy-cm): 800.51 FINDINGS: Brain: No evidence of active or acute intracranial pathologic process, hemorrhage, or trauma. No visible evidence of diffuse cerebral edema or generalized demyelination. No mass effect. No midline shift. No findings raising suspicion for posterior reversible encephalopathy syndrome (PRES) Cerebral ventricles: No ventriculomegaly. Paranasal sinuses: Mild chronic sphenoid sinusitis. No visible active paranasal sinus disease. Mastoid air cells: Visualized mastoid air cells are well aerated. Bones/joints: Unremarkable. No acute fracture. Soft tissues: Unremarkable. CT/CT head wo con* [id number] IMPRESSION: No evidence of active or acute intracranial pathologic process, hemorrhage, or trauma. Radiation Dose CTDIVOL = (mGy): DLP = 800.51 (mGy-cm)
--- NOTE | 2021-08-04 19:59 | PC.NURSE ---
This nurse accompanied Dr. Hunt to patients bedside. Patient stated that she was concerned about her continued nausea. Her sister was also at the bedside and expressed concern that not enough was being done for her sister and that she thought that the patient probably had a UTI. Dr. Hunt educated patient about the medication schedule she had put her on to help with her nausea and that it may take 24 hours for her to really see improvement. Also that the goal of treatment was an improvement in symptoms. They discussed pain, the patient denied pain at that time, stated that she had lower right quadrant pain early this morning and yesterday.
--- NOTE | 2021-08-04 20:41 | PM.CONSULT ---
Providers/Reason For Consult Consulting Physician/Specialty*: Hospitalist Reason for Consult*: Nausea and elevated blood pressure Attending Physician: Julito Ko MD History of Present Illness History of Present Illness 36-year-old lady without much significant past medical history, remote alcohol consumption, none during , associated nausea for which she has been using marijuana, remote history of drug use without recurrence. She had a vaginal delivery last night. Since delivery she feels that her nausea, vomiting was worse than usual. She has been having to stay in the bathtub for comfort. She had a mild headache during the shower. She otherwise denies any persistent headache. She had a bowel movement earlier today. Is passing flatus. She denies fever, but has been having some hot sweats. Denies diplopia, vision loss. Denies numbness or weakness. Noted to have hypertension today, blood pressure as high as 170/82. Not previously hypertensive. No history of preeclampsia. Preeclampsia was considered but not suggestive by laboratory work-up. Earlier she had had some right lower quadrant discomfort, but this has resolved 4 hours. UA has been obtained as well due to history of nausea with UTI in the family. She is noted with leukocytosis 15.4. Platelets are normal at 215,000. Hemoglobin 11.4. She is afebrile. Heart rate noted today with some bradycardia, down into the 40s. Blood pressure currently is better down to 146/69. Review of Systems Const: Reports: other (Hot sweats); Denies: fever(s), chills, body aches or malaise Eyes: Denies: change in vision ENMT: Denies: throat pain or ear or mastoid pain Card: Denies: chest pain, edema, pre-syncope or dyspnea on exertion Resp: Denies: dyspnea, productive cough, change in phlegm color or hemoptysis GI: Reports: nausea and vomiting; Denies: abdominal pain, diarrhea, constipation, hematochezia or melena : Denies: flank pain, urinary frequency or hematuria Musc: Denies: back pain, joint swelling or joint redness Skin/Breast: Denies: rash, sores or new lesions Neuro: Denies: headache(s), numbness in extremities, weakness in extremities, dizziness, confusion or seizure-like activity Endo: Denies: polyuria or polydipsia Dilshad/Lymph: Denies: purpura All/Imm: Denies: urticaria Meds/Allergies Home Medications and Allergies Home Medications Medication Instructions Recorded Confirmed Last Taken Type No Known Home Medications 06/13/21 07/28/21 Unknown History Allergies Allergy/AdvReac Type Severity Reaction Status Date / Time No Known Allergies Allergy Verified 07/28/21 13:39 Current Medications Current Medications Generic Name Dose Route Start Last Admin Trade Name Cadence PRN Reason Stop Dose Admin Acetaminophen 650 mg 08/03/21 13:38 08/04/21 02:08 Acetaminophen 325 Mg Tablet PO 650 mg Q6H PRN Administration Mild pain or temp > 100.4 Benzocaine 1 spray 08/04/21 00:23 08/04/21 01:54 Benzocaine-Menthol 78 Gm Canister TOPICAL 1 spray PRN PRN Administration PAIN Docusate Sodium 100 mg 08/04/21 09:00 08/04/21 09:53 Docusate Sodium 100 Mg Capsule PO 100 mg BID ERICH Administration Oxytocin 30 unit in 500 mls @ 600 mls/hr 08/03/21 13:38 08/03/21 18:00 Pitocin IV 500 mls/hr .Q50M PRN 500 mls/hr After delivery of infant Administration Protocol Dextrose/Lactated Ringer's 1,000 mls @ 125 mls/hr 08/03/21 13:45 08/04/21 17:25 Dextrose 5%-Lactated Ringers IV 999 mls/hr .Q8H ERICH Administration Ropivacaine 200 mg in 100 mls @ 13 mls/hr 08/03/21 13:45 08/03/21 14:57 Naropin Premix EPIDURAL 13 mls/hr .Q7H42M ERICH Administration Lactated Ringer's 1,000 mls @ 999 mls/hr 08/03/21 13:40 08/03/21 14:52 Lactated Ringers IV 999 mls/hr .Q1H1M PRN Administration See label comments Lanolin 1 applic 08/04/21 00:23 08/04/21 01:54 Lanolin Oint 7 Gm TOPICAL 1 applic PRN PRN Administration DRYNESS Metoclopramide HCl 10 mg 08/04/21 13:00 08/04/21 13:39 Metoclopramide 10 Mg Tablet PO 10 mg Q8H ERICH Administration Nicotine 1 patch 08/03/21 19:36 08/03/21 20:59 Nicotine 21 Mg Patch TRANSDERMA 1 patch DAILY ERICH Administration Ondansetron HCl 4 mg 08/03/21 13:38 08/04/21 11:36 Ondansetron 2 Mg/Ml Sdv 2 Ml IVP 4 mg Q4H PRN Administration NAUSEA AND VOMITING Multivit/Folic Acid/Iron 1 cap 08/04/21 09:00 08/04/21 09:53 Vitamin Capsule PO 1 cap DAILY ERICH Administration Promethazine HCl 25 mg 08/04/21 13:00 08/04/21 19:46 Promethazine 25 Mg Supp [place] 25 mg Q6H ERICH Administration PFSH Acute PFSH: Medical History Alcohol abuse Smoker Surgical History H/O hand surgery left index finger, needle removal Previous section Family History Family/Other Diabetes maternal and paternal cousins Denies family history of Colon cancer Ovarian cancer Clotting disorder Heart disease Hyperlipidemia Breast cancer Anesthesia complication Bleeding disorder Hypertension Uterine cancer Thyroid condition Stroke Social History Smoking and tobacco status: current every day smoker cigarettes Packs smoked per day: 0.75 Alcohol intake: former Former alcohol use details: prior to Substance/Drug Use: former Female Reproductive History: : 3 Vitals/I&O/Wt Last Vital Signs Temp 97.3 F L 08/04/21 03:13 Pulse 54 L 08/04/21 15:32 Resp 16 08/03/21 16:32 BP 146/69 08/04/21 15:32 Pulse Ox 100 08/03/21 15:27 08/04/21 08/04/21 08/04/21 06:59 14:59 22:59 Output Total 900 / 1900 200 / 200 Balance -900 / -178.033 -200 / -200 Weight last 48 hrs Weight 65.771 kg Physical Exam Narrative: EXAM NARRATIVE: Sister at bedside. Const: COMMON NORMALS: no acute distress and patient oriented x3 OTHER: Speaking quickly, at time becoming tearful when speaking about her nausea. Becomes very upset, with profanity when discussing additional metabolic panel blood draw. HENMT: COMMON NORMALS: oropharynx normal Neck/C-Spine: COMMON NORMALS: no meningeal signs and no JVD Resp: COMMON NORMALS: normal respiratory effort and clear to auscultation bilaterally AUSCULTATION: clear to auscultation bilaterally Cardio: COMMON NORMALS: no JVD, regular rhythm, S1 normal heart sound present, S2 normal heart sound present and No murmurs present (Cardio) RHYTHM: regular rhythm HEART SOUNDS: S1 normal heart sound present and S2 normal heart sound present GI: COMMON NORMALS: Normal to inspection, nondistended, normoactive bowel sounds present and Soft to palpation PALPATION: Yes Soft to palpation OTHER: Mildly tender lower abdomen. No right lower or right upper quadrant tenderness. Negative Hogan. Extremity: COMMON NORMALS: no joint enlargement and no pedal edema Neuro: COMMON NORMALS: patient oriented x3 and moves all extremities MENINGEAL SIGNS: Yes no meningeal signs COORDINATION/BALANCE: [id number] test normal SPEECH: speech normal SENSORY EXAM: Yes Normal double simultaneous stimulation for sensation; No sensory level loss detected MOTOR EXAM: 5/5 motor strength present throughout, Pronator motor function not present and Normal motor muscle tone present throughout COORDINATION: [id number] test normal OTHER: No trouble tracking. No diplopia, nystagmus. Visual oscar full to confrontation. Psych: COMMON NORMALS: Normal thought process present ATTITUDE: Yes Guarded attititude/behavior present SPEECH: Yes rapid and Yes soft MOOD & AFFECT: Yes tearful THOUGHT PROCESS: Normal thought process present THOUGHT CONTENT: Yes Normal thought content present Skin: COMMON NORMALS: no rashes or lesions noted GENERAL SKIN EXAM: no rashes or lesions noted Urinary Catheter Management^: Cadena Latex: Cath Placed During This Visit: yes, but has since been removed by the nurse Reason for Continuing Indwelling Catheter: Decision to DC Catheter Urinary Catheter Date of Insertion: 08/03/21 Urinary Catheter Time of Insertion: 15:45 Date Urinary Catheter Removed: 08/03/21 Time Urinary Catheter Discontinued: 17:40 A&P Assessment and plan (1) Nausea and vomiting: Discussed with her her and her sister. The etiology is not entirely clear. May be exacerbation of her recent antepartum nausea. Possibly exacerbated with the epidural anesthesia which should hopefully continue to wear off. UA had been obtained, is not suggestive of UTI. Discussed with her with nausea, hypertension, bradycardia, will assess CT head to exclude central etiology of her symptoms. She is agreeable. Discussed with her also noted alkaline phosphatase elevation, although this is isolated. She did have some right side discomfort earlier which has resolved. Will reassess CMP, although she initially becomes very upset about trying to draw blood work, however, subsequently after discussion of reasoning no follow-up of liver parameters, renal function, agrees for one attempt. Discussed with nursing staff to apply lidocaine jelly prior to attempted drop as she expresses significant discomfort with obtaining blood draws or IV placement. Would avoid NSAIDs if possible. Monitor blood pressure closely, treat if rising. PRES could be another consideration, although probably less likely given lack of other symptoms. Continue nausea regimen. Status: Acute (2) HTN (hypertension): Perhaps exacerbated by her symptoms of nausea. Preeclampsia had been considered, is not suggested by urine studies. Platelets are normal. Additional assessment of CMP as above. Treat nausea. Monitor blood pressure. Treat if rising. Would avoid pratima blocking agents or anything that may slow down the heart. Status: Acute (3) Alkaline phosphatase elevation: Incidentally noted. Possibly some mild cholestasis related to . Will reassess. Right upper quadrant unremarkable on exam. Hogan negative. Discussed with her in case of additional concerning symptoms may pursue additional hepatobiliary imaging. Status: Acute (4) Bradycardia: Not entirely clear etiology of bradycardia. Heart rates into the 40s-50s. Will obtain EKG. Possibly vasovagal secondary to nausea, vomiting. With hypertension, recent delivery discussed with her and her sister will assess also CT head to exclude central etiology. Status: Acute (5) Leukocytosis: Apart from stress induced due to recent delivery, she otherwise does not appear to show signs of acute infection. He is afebrile. Without other signs of sepsis. Monitor for any changes. UA is not suggestive of UTI. She otherwise has no symptoms of pneumonia. No other GI complaints. No meningeal signs. No rash. Continue to monitor for any signs of infection. Status: Acute (6) Smoker: Smoking addiction. Discussed milking cessation with her. She had tried to quit previously, and leaves it at that. States that she has been getting cravings. Request for a replacement nicotine patch due to losing the previous one. Discussed with her we will also add lozenges as needed to help with cravings. Status: Acute Consult Attestations Medical Necessity Statement: Continue admission for assessment, as well as assessment management of persistent nausea, monitoring blood pressure, additional imaging and laboratory work-up as above. Coding Level of Care Code Acute Specialty Finishing Utility Person for Chg Fwd Diagnoses Nausea and vomiting R11.2 HTN (hypertension) I10 Alkaline phosphatase elevation R74.8 Bradycardia R00.1 Leukocytosis D72.829 Smoker F17.200
--- NOTE | 2021-08-04 21:00 | ECG_ITS ---
[facility] Test Date: 2021-08-04 Pat Name: Calista Guaman Department: Room: OB4 Gender: Female Lab Coordinator: : 1985 Requested By: Kevin Babb Order Number: [id number] Reading MD: ANGELA SCHMID Measurements Intervals [place] Rate: 50 P: 51 VA: 157 QRS: 48 QRSD: 76 T: 51 QT: 422 QTc: 387 Interpretive Statements SINUS BRADYCARDIA SEPTAL MYOCARDIAL INFARCTION , OF INDETERMINATE AGE [40+ ms Q WAVE IN V1/V2] No previous ECG available for comparison Electronically Signed On 08-05-2021 20:18:15 CDT by ANGELA SCHMID [id number]
[2021-08-05] VITALS (7 sets, daily range): BP systolic 112–136; BP diastolic 61–79; PULSE 76–86; RESP 14; TEMP 36.2–36.6
[2021-08-05] MEDS: promethazine 25 mg Supp PR (01:56)
--- NOTE | 2021-08-05 03:30 | PC.NURSE ---
THIS NURSE CALLED LAB AT THIS TIME TO CONFIRM THEY ARE COLLECTING 0400 LABS BEFORE APPLICATION OF LIDOCAINE JELLY.
[2021-08-05 04:04] LABS: Basophils # 0.1 10^3/uL (0.0-0.1); Basophils % 0.4 %; Eosinophils # 0.1 10^3/uL (0.0-0.8); Eosinophils % 0.7 %; Hemoglobin 11.2 g/dL (11.5-15.3); Lymphocytes # 1.6 10^3/uL (0.8-4.8); Lymphocytes % 11.9 %; Mean Corpuscular HGB Conc 32.9 g/dL (30.0-36.0); Mean Corpuscular Hemoglobin 31.4 pg (28.0-34.0); Mean Corpuscular Volume 95.2 fl (81-99); Mean Platelet Volume 11.4 fL (7.4-10.4); Monocytes % 7.1 %; Neutrophils # 10.71 10^3/uL (1.8-7.7); Neutrophils % 79.5 %; Nucleated Red Blood Cells % 0 %; Platelet Count 218 10^3/cmm (130-400); Red Blood Count 3.57 10^6/uL (4.1-5.3); Red Cell Distribution Width 13.1 % (12.1-15.1); White Blood Count 13.5 10^3/uL (4.0-10.0)
[2021-08-05 04:25] LABS: Alanine Aminotransferase 13 U/L (0-33); Alkaline Phosphatase 185 IU/L (35-105); Anion Gap 15.6 (5-19); Aspartate Amino Transferase 19 U/L (0-32); Blood Urea Nitrogen 4 mg/dL (6-20); Calcium 8.5 mg/dL (8.5-10.5); Carbon Dioxide 21 mmol/L (22-29); Chloride 101 mmol/L (98-107); Globulin 3.1 g/dL (1.3-4.6); Glomerular Filtration Rate 182.7 mL/min (90-130); Glucose 93 mg/dL (65-115); Osmolality Calculated 275 mOsm/kg (285-295); Potassium 3.6 mmol/L (3.5-5.1); Sodium 134 mmol/L (136-145); Total Bilirubin 0.3 mg/dL (0.15-1.2); Total Protein 6.1 g/dL (6.6-8.7)
[2021-08-05] MEDS: metoclopramide 10 mg Tablet PO (05:46)
[2021-08-05] MEDS: prenatal vitamin Capsule 1 CAP PO (10:05)
[2021-08-05] MEDS: docusate sodium 100 mg Capsule PO (10:05)
--- NOTE | 2021-08-05 10:24 | P.PN_ITS ---
Subjective Subjective: Interval history: Feels much better. Nausea, vomiting pretty much resolved. No abdominal/right side abdomen pain or discomfort. No headache. Vitals/I&O/Wt Last Vital Signs Temp 97.5 F L 08/05/21 10:06 Pulse 76 08/05/21 10:07 Resp 14 08/05/21 04:00 BP 136/79 08/05/21 10:07 Pulse Ox 100 08/03/21 15:27 Weight last 48 hrs Weight 65.771 kg Physical Exam Narrative: EXAM NARRATIVE: Sister at bedside. Const: COMMON NORMALS: no acute distress, patient oriented x3 and alert GENERAL APPEARANCE: cooperative and comfortable ORIENTATION/CONSCIOUSNESS: Yes awake HENMT: COMMON NORMALS: oropharynx normal Neck/C-Spine: COMMON NORMALS: no meningeal signs and no JVD Resp: COMMON NORMALS: normal respiratory effort and clear to auscultation bilaterally AUSCULTATION: clear to auscultation bilaterally Cardio: COMMON NORMALS: no JVD, regular rhythm, S1 normal heart sound present, S2 normal heart sound present and No murmurs present (Cardio) RHYTHM: regular rhythm HEART SOUNDS: S1 normal heart sound present and S2 normal heart sound present GI: COMMON NORMALS: Normal to inspection, nondistended, normoactive bowel sounds present and Soft to palpation PALPATION: Yes Soft to palpation OTHER: Mildly tender lower abdomen. No right lower or right upper quadrant tenderness. Negative Hogan. Extremity: COMMON NORMALS: no joint enlargement and no pedal edema Neuro: COMMON NORMALS: patient oriented x3 and moves all extremities SENSORIUM/ORIENTATION: Yes alert MENINGEAL SIGNS: Yes no meningeal signs SPEECH: speech normal Psych: ATTITUDE: Yes calm Skin: COMMON NORMALS: no rashes or lesions noted GENERAL SKIN EXAM: no rashes or lesions noted Urinary Catheter Management^: Cadena Latex: Cath Placed During This Visit: yes, but has since been removed by the nurse Reason for Continuing Indwelling Catheter: Decision to DC Catheter Urinary Catheter Date of Insertion: 08/03/21 Urinary Catheter Time of Insertion: 15:45 Date Urinary Catheter Removed: 08/03/21 Time Urinary Catheter Discontinued: 17:40 Data : 08/05/21 03:56 08/05/21 03:56 A&P Assessment and plan (1) Nausea and vomiting: Resolved. Feels much better. CT of the head unremarkable. Blood pressure significantly improved. Bradycardia resolved. Renal function, liver parameters normal. Improvement in elevation of alk phos, discussed with her and her sister. Suspect physiologic, should continue to resolve. Discussed follow-up with primary provider for res olution or seek additional assessment if persists or any additional right-sided symptoms. Status: Acute (2) HTN (hypertension): Improved. Continue to monitor blood pressure after discharge. Perhaps exacerbated by her symptoms of nausea. Preeclampsia had been considered, is not suggested by urine studies. Platelets are normal. Status: Acute (3) Alkaline phosphatase elevation: Discussed with her. Improving. As above, suspected physiologic. Discussed with her to follow-up with primary provider in office.. Status: Acute (4) Bradycardia: Resolved. Suspect was vasovagal related to nausea, vomiting. CT of the head unremarkable. Status: Acute (5) Leukocytosis: Improving. Afebrile. No signs of sepsis. Status: Acute (6) Smoker: Continue to encourage cessation. Status: Acute Additional A&P Information Mild wheeze: Discussed with her and her sister. Discussed to follow-up with primary provider. Reassess, if persistent wheezing noted to seek additional evaluation. Again please continue to encourage smoking cessation. Attestations Medical Necessity Statement*: She is likely returning home today. Coding Level of Care Code Acute House Steward/Stewardess for g Fwd Exam Comprehensive Diagnoses Nausea and vomiting R11.2 HTN (hypertension) I10 Alkaline phosphatase elevation R74.8 Bradycardia R00.1 Leukocytosis D72.829 Smoker F17.200
--- NOTE | 2021-08-05 10:27 | PM.OBGYDC ---
Discharge Providers [employer] Date of Admission: 08/03/21 13:39 Date of Discharge: 08/05/21 Attending Provider at Admission: Fadia Wells MD Attending Provider at Discharge: Gilbert PRE-DELIVERY DIAGNOSIS: 36 yr old G [id number] at 38w1d Active labor Previous delivery x1 desiring trial of labor. IUGR versus small for gestational age Alcohol use Tobacco use Multiparity desiring permanent sterilization Elevated blood pressure prior to delivery-preeclamptic labs were negative-pain versus gestational hypertension POST-DELIVERY DIAGNOSIS: Vaginal after on 08/03/2021 PROCEDURE: Vaginal after on 08/03/2021 ANESTHESIA: Epidural anesthesia DELIVERING PHYSICIAN: Fadia Hunt FACALFIE PRE-DELIVERY COURSE: Ms. Guaman is a 36-year-old 3 para 2-0-0-2 at 38 weeks and 1 day who presented to labor and delivery on 08/03/2021 with reports of contractions. On initial exam she was noted to be 5 cm 75% and -2 station with contractions every 3 to 5 minutes and a category 1 tracing. She was admitted in labor and an epidural was placed as she was uncomfortable. After the epidural she was 7 cm. At 4:30 PM artificial rupture of membranes was performed and she was noted to be 8 cm 90% and -2 station. Meconium amniotic fluid was noted. [employer] Technician was notified and asked to be there at time of delivery. She made rapid cervical change and was fully dilated at 5:27 PM feeling the urge to push. tracing was category 1 thus far. DELIVERY NOTE: She was set up in lithotomy position and was pushing effectively. She was noted to be +3 station and continued pushing well. The head delivered in NICHOLAS position, no nuchal cord present. The shoulders and rest of the body followed with her next push. Cord was clamped and cut and the baby handed to the waiting coupon manifest clerk Dr. Villalpando .The placenta delivered spontaneously intact with membranes and was sent to pathology. The fundus was noted to be firm and well contracted. Manual exploration of the uterine cavity showed the cavity was intact with no defect at site of previous scar. The vagina and cervix were inspected and no cervical or sulcal lacerations were noted. The perineum was intact. Baby girl, Araceli born at 5:54 PM on 08/03/2021 with 8/9, weighing 4 pounds 7 ounces 2010 g, 17-1/2 inches long. Placenta was delivered spontaneously intact with membranes at 5:59 PM.. Cotyledons were intact , centrally inserted umbilical cord with 3 vessels noted. Estimated blood loss 200 mL. Complications-none, both baby and mother were left to recover in a stable condition. Mother decided she would like to have interval sterilization done when she will be scheduled for surgery on an interval basis. HOSPITAL COURSE: She underwent an uncomplicated vaginal after on 08/03/2021. She did well on day 0 and was ambulating well, tolerating regular diet, voiding freely, passing flatus. She was breast-feeding without difficulty and bonding well with her daughter. Pain was well-controlled with by mouth pain medication. She denied nausea, vomiting, fever, chills, shortness of breath, leg pain. She had moderate vaginal bleeding. On day #1 she continued to do well until about the afternoon when she started to have a lot more nausea. She was put on a regimen of per rectum Phenergan and p.o Reglan and symptoms are well controlled with this by the evening. She reported this nausea and vomiting was chronic and have been present for months before delivery and she had been using marijuana to keep this nausea at bay. Given this medicine consult was called and they recommended a CT scan which was performed and normal CMP done was normal except for mild hyponatremia and she was given an IV fluid bolus for this. With the medication regimen changes her nausea resolved and she was much better. She was bradycardic on postoperative day 1 and EKG done showed sinus bradycardia but was otherwise normal however with control of her nausea heart rate returned to normal. She was initially hypertensive because she was sick and nauseous but with control of the vomiting her blood pressure returned to normal. Urine analysis was sent to rule out infection which was largely normal and culture was pending patient denied any abdominal pain or dysuria . Nausea remained to be controlled for about 6 PM on day #1 and on day #2 she was doing well with normal vital signs and had not vomited in over 18 hours. She would like to continue nausea medication. She was discharged home on day 2 in a stable condition. Warning signs for endometritis, mastitis, DVT/PE were reviewed with her. Post delivery activity restrictions were also reviewed with her at all her questions were answered to her satisfaction. Plans on a tubal ligation which will be done as an interval procedure-message sent to Larry-surgery nurse EXAM AT DISCHARGE: Gen.: No acute distress Heart: S1-S2 heard, regular rate and rhythm Lungs: Clear to auscultation bilaterally Abdomen: Soft, fundus firm below umbilicus, Legs: No calf tenderness, no pedal edema. CONDITION AT DISCHARGE: Stable This documentation was created by [employer] automatic bow maker machine tender software (known for inherent automatic bow maker machine tender error). Every effort was made to assure accuracy of automatic bow maker machine tender. Any obvious errors or omissions should be clarified with the author of the document. Diagnoses at Discharge Discharge Diagnosis (1) Nausea and vomiting: Status: Acute (2) HTN (hypertension): Status: Acute (3) Alkaline phosphatase elevation: Status: Acute (4) Bradycardia: Status: Acute (5) Leukocytosis: Status: Acute (6) Smoker: Status: Acute Reason for Visit Reason for Visit: CONTRACTIONS Information Peripartum Data: Infant Delivery Method: Vaginal Physical Exam Urinary Catheter Management^: Cadena Latex: Cath Placed During This Visit: yes, but has since been removed by the nurse Reason for Continuing Indwelling Catheter: Decision to DC Catheter Urinary Catheter Date of Insertion: 08/03/21 Urinary Catheter Time of Insertion: 15:45 Date Urinary Catheter Removed: 08/03/21 Time Urinary Catheter Discontinued: 17:40 Discharge Data Data Completed and Pending: Completed Studies During Hospitalization Category Date Time Status CT head wo con* 7 0450 Routine Cat Scan 08/04/21 19:28 Completed Pending at discharge Category Date Time Status Comprehensive Met abolic Panel Routi ne Lab 08/04/21 19:28 Ordered Gamma Glutamyl Tr anspeptidase Routi ne Lab 08/04/21 20:40 Ordered Gamma Glutamyl Tr anspeptidase Routi ne Lab 08/05/21 08:33 Ordered Cytology [PTH] Ro utine Pth 08/04/21 16:55 Ordered Labs from last 24 hours 08/05/21 08/05/21 08/04/21 03:56 03:56 17:35 WBC 13.5 H RBC 3.57 L Hgb 11.2 L Hct 34.0 L MCV 95.2 MCH 31.4 MCHC 32.9 RDW 13.1 Plt Count 218 MPV 11.4 H Neut % (Auto) 79.5 Lymph % (Auto) 11.9 [place] % (Auto) 7.1 Eos % (Auto) 0.7 Baso % (Auto) 0.4 Neut # (Auto) 10.71 H Lymph # (Auto) 1.6 [place] # (Auto) 1.0 H Eos # (Auto) 0.1 Baso # (Auto) 0.1 Nucleated RBC % (a uto) 0 Nucleated RBCs # 0.0 Sodium 134 L Potassium 3.6 Chloride 101 Carbon Dioxide 21 L Anion Gap 15.6 BUN 4 L Creatinine 0.4 L GFR Calculation 182.7 H Glucose 93 Calculated Osmolal ity 275 L Calcium 8.5 Total Bilirubin 0.3 AST 19 ALT 13 Alkaline Phosphata se 185 H Total Protein 6.1 L Albumin 3.0 L Globulin 3.1 Urine Color Yellow Urine Appearance Clear Urine pH 6.5 Ur Specific Gravit y 1.015 Urine Protein Neg Urine Glucose (UA) Norm Urine Ketones Negative Urine Blood 2+ H Urine Nitrate Negative Urine Bilirubin Neg Urine Urobilinogen Norm Ur Leukocyte Fouzia ase Negative Urine RBC 5-10 H Urine WBC 0-4 H Ur Squamous Epith Cells 0-4 H Amorphous Sediment Not Reportable Urine Bacteria Trace Urine Mucus Trace Vitals: Last Vital Signs Temp 97.5 F L 08/05/21 10:06 Pulse 76 08/05/21 10:07 Resp 14 08/05/21 04:00 BP 136/79 08/05/21 10:07 Pulse Ox 100 08/03/21 15:27 Discharge Plan Discharge Patient Disposition: Home Condition: Stable Prescriptions: New promethazine [Promethegan] 25 mg Suppository 25 mg DC Q6H 7 Days Qty: 20 RF: 0 docusate sodium 100 mg Capsule 100 mg PO BID PRN (Reason: constipation) Qty: 30 RF: 0 ibuprofen 800 mg tablet 800 mg PO Q8H Qty: 30 RF: 0 No Action No Known Home Medications RF: 0 Discharge Orders: Discharge Order (Routine); Ordered 08/05/21 Ordered By: Fadia Welsl Referrals: Julito Ko MD [Physician] - (6-week visit and planning for tubal ligation-message sent to) Discharge Diet: Regular Discharge Activity: Limit activity as instructed Patient Instructions: Vitamins (By mouth), Depression (GEN), Pre-eclampsia and Eclampsia (DC), Bleeding (DC), OB Discharge Report, OB Food/Drug Interaction Guide, Opioid Safety, OB Home Care, OB Proud Parent Packet, OB Vaginal Deliveries - [facility] Activity Restrictions/Additional Instructions: Pelvic rest for 6 weeks, no heavy lifting for 6 weeks, follow-up with Dr. Ko for visit and preop appointment for tubal ligation. -Patient to call her primary care provider and if she does not have 1 call the clinic closest to her to get in to be seen about 1 to 2 weeks after delivery for chronic nausea and vomiting. Discharge Attestations [employer] Time Spent in Discharge Care*: greater than 30 min Coding Level of Care Code Acute Lay Out Former for Chg Fwd Diagnoses Nausea and vomiting R11.2 HTN (hypertension) I10 Alkaline phosphatase elevation R74.8 Bradycardia R00.1 Leukocytosis D72.829 Smoker F17.200
[2021-08-05 15:15] LABS: Gamma Glutamyl Transferase 13 U/L (5-36)
== END 2021-08-05 13:05 | disposition home or self-care (01) | DRG 805 ==
LOC: OPOB 08-04 09:30 → OBGYN 08-04 09:30
PROVIDERS: Internal Medicine; Admitting Provider Obstetrics & Gynecology; Visit Provider Obstetrics & Gynecology
DX: O16.4 Unspecified maternal hypertension, complicating childbirth (principal); K83.1 Obstruction of bile duct; Z37.0 Single live birth; O34.211 Maternal care for low transverse scar from previous cesarean delivery; O99.324 Drug use complicating childbirth; O26.62 Liver and biliary tract disorders in childbirth; F12.90 Cannabis use, unspecified, uncomplicated; O99.334 Smoking (tobacco) complicating childbirth; F17.210 Nicotine dependence, cigarettes, uncomplicated; O99.314 Alcohol use complicating childbirth; O09.43 Supervision of pregnancy with grand multiparity, third trimester; O36.5930 Maternal care for other known or suspected poor fetal growth, third trimester, not applicable or unspecified; Z3A.38 38 weeks gestation of pregnancy; Z83.3 Family history of diabetes mellitus; Z98.890 Other specified postprocedural states
CPT/HCPCS: 36415; 51702; 59409; 70450; 80053; 80306; 81001; 82570; 82977; 84156; 84550; 85025; 85027; 88307; 93005; 98960; 99211; J2405; J2765; J2795; J8498; J8597

== ENCOUNTER → 2021-09-22 13:51 | Outpatient (BNVA) | payer MEDICAID, SELFPAY | PROVIDERS: Visit Provider Obstetrics & Gynecology | DX: Z30.9 Encounter for contraceptive management, unspecified (principal) | CPT/HCPCS: 81025 ==